=== PATIENT | male | born 1990 | race Caucasian/White ===

== ENCOUNTER 2017-10-13 17:26 | Emergency (ER) | payer OTHER ==
[~2017-10-13] VITALS: Ht 175.3 cm; Wt 86.2 kg
[~2017-10-13 17:26] MED LIST: AUGMENTIN 875-1 EACH PO; CEPHALEXIN500 MG PO; DOLOPHINE10 MG PO; MELATONIN5 M1 PO; MOTRIN 400MG (400 MG PO; OXYCODONE HCL5 M2 PO; OXYCODONE5 M1 PO; PERCOCET 325 MG1 TA2 PO; TRAMADOL50 MG PO; XANAX1 MG PO
--- NOTE | 2017-10-13 20:33 | ED PSYCHIATRIC COMPLAINT ---
History of Present Illness General Chief Complaint: General Adult Stated Complaint: PANIC ATTACK:DIFF BREATHING,CP Source: patient, old records Exam Limitations: no limitations Vital Signs & Intake/Output Vital Signs & Intake/Output Vital Signs Date Time Temp Pulse Resp B/P B/P Pulse O2 O2 Flow FiO2 Mean Ox Delivery Rate 10/13 2100 97.8 85 18 142/77 96 Room Air 10/13 1800 97.1 80 18 148/78 97 Room Air Room Air Allergies Coded Allergies: NO KNOWN ALLERGIES (NKDA) (08/30/11) Reconcile Medications Alprazolam (Xanax) 1 MG TAB 1 TAB PO TID PRN ANXIETY Alprazolam (Xanax) 2 MG TABLET 1 TAB PO BIDP PRN anxiety Amoxicillin/Potassium Clav (Augmentin 875-125 Tablet) 875 MG-125 MG TABLET 1 TAB PO BID TOOTHACHE Cephalexin 500 MG CAP 1 CAP PO 4 TIMES/DAY CELLULITIS Ibuprofen 400 MG TAB 1 TAB PO TID PRN Pain Melatonin 5 MG TAB 1 TAB PO AT BEDTIME PRN SLEEP Oxycodone HCl 5 MG CAPSULE 1 CAP PO TID PRN PAIN Triage Note: "I HAD A PANIC ATTACK YESTERDAY, BUT IT WENT AWAY, THEN TODAY IT LASTED LONGER, MY DOCTOR THAT PRESCRIBED MY XANAX IS NOT PRACTICING ANYMORE, SO I HAVEN'T HAD THE MED FOR A DAY OR TWO" "I FEEL VERY NERVOUS". Triage Nurses Notes Reviewed? yes Onset: Gradual Duration: day(s): (2), constant Timing: recent history Severity: moderate Severity Numbers: 5 Associated Symptoms: DENIES HPI: 26-year-old male presents to ER for evaluation complaining of intermittent progressively worsening anxiety panic attacks for the past 2 days after he ran of his Xanax 2 mg 3 times a day. He states that his doctor lost his license to prescribe. He denies SI or HI he denies any other complaints he is declining wishing to speak with crisis when offered. Past History Travel History Traveled to [place] past 21 day No Medical History Any Pertinent Medical History? see below for history Neurological: NONE EENT: NONE Cardiovascular: PT STATES MIGHT HAVE HTN Respiratory: asthma Gastrointestinal: NONE Hepatic: NONE Renal: NONE Musculoskeletal: fracture, (LT WRIST) Psychiatric: anxiety, insomnia, IV drug abuse, opioid dependence, BORDERLINE PERSONALITY panic disorder with agoraphobia Endocrine: NONE Blood Disorders: NONE Cancer(s): NONE DYE HOUSE HAND/Reproductive: NONE History of MRSA: No History of VRE: No History of CDIFF: No Tetanus Vaccine: 07/23/13 Surgical History Surgical History: non-contributory Psychosocial History Who do you live with Mother Services at Home None What is your primary language Yakut Tobacco Use: Quit >30 days ago ETOH Use: denies use Illicit Drug Use: denies illicit drug use Family History Family History, If Any: MOTHER Anxiety disorder FATHER FH: alcohol abuse AUNT Hx Contributory? No Review of Systems Review of Systems Constitutional: Reports: see HPI. Comments Review of systems: See HPI, All other systems negative. Constitutional, no chills no fever, HEENT: no sore throat no congestion, Cardiovascular: No chest pain Skin: no rashes, no change in skin Respiratory: No dyspnea no cough no sputum GI: No nausea no vomiting, : No dysuria No hematuria, no frequency Muscle skeletal: No joint pain, no back pain Neurologic: , no headache Psych: SEE HPI Heme/endocrine: No bruising Immunology: No lymphadenopathy Physical Exam Physical Exam General Appearance: well developed/nourished, no apparent distress, alert Neurological/Psychiatric: no motor/sensory deficits, awake Comments: Well-developed well-nourished person in no acute distress HEENT: Normal EENT exam; PERRL, EOMI, HEAD is atraumatic. moist mucous membranes. Neck: Supple,normal range of motion Back: Full range of motion Cardiovascular: Regular rate and rhythms no murmur Respiratory:No respiratory distress. Patient speaking in full complete sentences. Breath sounds clear to auscultation bilaterally: NO W/R/R Extremity: No edema, full range of motion of extremities Neuro: Alert oriented x3, motor sensory normal, There were no obvious focal neurologic abnormalities. Skin: No appreciable rash on exposed skin, skin is warm and dry. Psych: Mood and affect is normal, memory and judgment is normal. SAD PERSONS Done? patient not suicidal Progress Differential Diagnosis: ANXIETY, PANIC ATTACK MED REFILL Plan of Care: I discussed with patient plan of care we will prescribe him 10 pills of Xanax information for follow-up will be provided he feels comfortable plan patient declining speaking with crisis at this time. Departure Departure Time of Disposition: 2044 Disposition: HOME OR SELF CARE Condition: Stable Clinical Impression Primary Impression: Anxiety Referrals: [facility] Patient Has No Primary Care Dr (PCP/Family) Additional Instructions: Follow up with [facility] on monday. xanax as directed. return with any concerns Departure Forms: Customer Survey General Discharge Information Prescriptions: Current Visit Scripts Alprazolam (Xanax) 1 TAB PO BIDP PRN anxiety #10 TAB ED Attending Observation Initial Observation Note: I have seen and personally examined CHAVEZ HANSON on 10/13/17 at 2109. I agree with the current emergency department documentation. The disposition (admission or discharge) is uncertain at this time, he needs a period of observation for the following reason(s): The ED Nurse caring for this patient has been personally informed as to what the patient is being observed for.
[2017-10-13] MEDS ORDERED: XANAX2 M1 PO (20:46)
[2017-10-13 21:00] VITALS: BP 142/77
== END 2017-10-13 21:01 ==
LOC: ERH 17:26
DX: F41.9 Anxiety disorder, unspecified (principal)